=== PATIENT | female | born 1965 | race Caucasian/White ===

== ENCOUNTER 2017-06-10 19:55 | Emergency (ER) | payer OTHER ==
[~2017-06-10 19:55] MED LIST: AMLO10TA4 PO; FLUO20CA30 PO; LORA10TA60 PO
== END 2017-06-10 21:32 | disposition left against medical advice (07) ==
LOC: EMS 19:56
DX: R21 Rash and other nonspecific skin eruption (principal); Z53.21 Procedure and treatment not carried out due to patient leaving prior to being seen by health care provider

== ENCOUNTER 2017-06-27 14:19 | Emergency (ER) | payer OTHER ==
[~2017-06-27] VITALS: Ht 157.5 cm; Wt 86.4 kg
[2017-06-27] MEDS ORDERED: LOSA50TA37 PO (14:48)
[2017-06-27 15:47] VITALS: BP 152/88
[2017-06-27] MEDS ORDERED: CEPHALEXIN MONOHYDRATE 500 MG CAPSULE PO ONE (16:00)
[2017-06-27] MEDS ORDERED: POVIDONE-IODINE 10% 15 ML SOLUTION UD TP ONE (16:00)
[2017-06-27] MEDS ORDERED: LIDOCAINE HCL 1% 10 ML VIAL INJ ONE (16:00)
== END 2017-06-27 16:33 | disposition home or self-care (01) ==
LOC: EMS 14:20
DX: L03.031 Cellulitis of right toe (principal); I10 Essential (primary) hypertension; Z79.899 Other long term (current) drug therapy; Z98.890 Other specified postprocedural states
CPT/HCPCS: 10060; 99283; J3490

== ENCOUNTER 2018-09-06 16:22 | Emergency (ER) | payer OTHER ==
[~2018-09-06] VITALS: Ht 157.5 cm; Wt 87.3 kg
[~2018-09-06 16:22] MED LIST changes: -AMLO10TA4 PO; -FLUO20CA30 PO; +LOSA50TA64 PO
[2018-09-06] MEDS ORDERED: AMLO-512 PO (16:30)
[2018-09-06] MEDS ORDERED: KETOROLAC TROMETHAMINE 10 MG TABLET PO ONE (18:30)
[2018-09-06 18:51] VITALS: BP 146/74
== END 2018-09-06 18:53 | disposition home or self-care (01) ==
LOC: EMS 16:23
DX: G57.62 Lesion of plantar nerve, left lower limb (principal); I10 Essential (primary) hypertension

== ENCOUNTER 2020-06-09 18:08 | Emergency (ER) | payer OTHER ==
[~2020-06-09] VITALS: Ht 165.1 cm; Wt 106.8 kg
[~2020-06-09 18:08] MED LIST changes: +AMLO-258 PO; -LOSA50TA64 PO
[2020-06-09] MEDS ORDERED: PROPARACAINE HCL 0.5% 15 ML OPHTHALMIC SOLUTION OU ONE (20:45)
[2020-06-09] MEDS ORDERED: FLUORESCEIN SODIUM 1 MG STRIP ONE (20:50)
[2020-06-09 21:56] VITALS: BP 140/88
== END 2020-06-09 21:57 | disposition home or self-care (01) ==
LOC: EMS 18:09
DX: S05.02XA Injury of conjunctiva and corneal abrasion without foreign body, left eye, initial encounter (principal); I10 Essential (primary) hypertension; Z79.899 Other long term (current) drug therapy; H10.212 Acute toxic conjunctivitis, left eye; X58.XXXA Exposure to other specified factors, initial encounter; Y93.89 Activity, other specified; Y92.89 Other specified places as the place of occurrence of the external cause; Y99.8 Other external cause status
CPT/HCPCS: 99173